=== PATIENT | female | born 1995 | race Caucasian/White ===

== ENCOUNTER 2017-02-11 09:35 | Emergency (ER) | payer OTHER ==
[~2017-02-11] VITALS: Wt 47.4 kg
[2017-02-11] MEDS ORDERED: ACETAMINOPHEN 500 MG TAB PO STA (10:30)
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
[2017-02-11] MEDS ORDERED: ACET500C5 PO (11:47)
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
== END 2017-02-11 12:00 | disposition home or self-care (01) ==
LOC: FTE 09:35
DX: S13.9XXA Sprain of joints and ligaments of unspecified parts of neck, initial encounter (principal); V89.2XXA Person injured in unspecified motor-vehicle accident, traffic, initial encounter
CPT/HCPCS: 72040; Z7502; Z7610